=== PATIENT | male | born 1990 | race African-American/Black ===

== ENCOUNTER 2021-04-20 08:27 | Emergency (ER) | payer MEDICAID ==
[~2021-04-20] VITALS: Ht 175.3 cm; Wt 82.0 kg
[2021-04-20] MEDS ORDERED: IBUPROFEN 600MG TABLET PO ONE (08:45)
[2021-04-20] MEDS ORDERED: DOCUSATE SODIUM SUGAR FREE 100MG/10ML UDC NG ONE (08:45)
[2021-04-20] MEDS ORDERED: CARB15DR63 EACH EAR (10:04)
[2021-04-20 10:24] VITALS: BP 134/79
== END 2021-04-20 10:30 | disposition home or self-care (01) ==
LOC: ER 08:27
DX: H61.23 Impacted cerumen, bilateral (principal); J45.909 Unspecified asthma, uncomplicated
CPT/HCPCS: 99282; A4217

== ENCOUNTER 2021-09-05 10:47 | Emergency (ER) | payer MEDICAID ==
[~2021-09-05] VITALS: Ht 172.7 cm; Wt 79.0 kg
[~2021-09-05 10:47] MED LIST: CARB15DR63 EACH EAR; NAPR-1176 MT; TC1U15 TP
[2021-09-05] MEDS ORDERED: ALBUTEROL (0.083%) 2.5MG/3ML NEB HHN STA (12:52)
[2021-09-05] MEDS ORDERED: IPRATROPIUM BROMIDE (0.02%) 0.5MG/2.5ML NEB HHN STA (12:52)
[2021-09-05] MEDS ORDERED: METHYLPREDNISOLONE SOD SUCC 125 MG/2 ML VIAL IV STA (12:52)
[2021-09-05] MEDS ORDERED: NITROGLYCERIN 0.4MG TABLET SL SL PRN (13:00)
[2021-09-05] MEDS ORDERED: ASPIRIN 81MG TABLET PO ONE (13:00)
[2021-09-05 13:25] LABS: CHLORIDE 107 mEq/L (98-107)
[2021-09-05 13:28] LABS: BASOPHILS % 0.7 % (0.0-2.0); EOSINOPHILS % 5.1 % (0.0-5.0); HEMATOCRIT. 43.4 % (42.0-52.0); LYMPHOCYTES % 23.4 % (20.0-50.0); MEAN CORPUSCULAR HEMOGLOBIN 22.5 pg (28.0-32.0); MEAN PLATELET VOLUME 8.5 fl (7.4-10.4); MONOCYTES % 7.9 % (2.0-8.0); NEUTROPHILS % 62.9 % (40.0-76.0); PLATELET 227 x1000/uL (130-400); RED CELL DISTRIBUTION WIDTH 14.7 % (11.6-14.6)
[2021-09-05 13:49] LABS: D-DIMER < 0.19 mg/L FEU (<0.50); PARTIAL THROMBOPLASTIN TIME 26.8 sec (23.4-31.0)
[2021-09-05 14:15] LABS: PLATELET ESTIMATE NORMAL
[2021-09-05] MEDS ORDERED: ALBU6.7H9 INH (14:42)
[2021-09-05] MEDS ORDERED: P20 MT (14:43)
[2021-09-05 19:35] VITALS: BP 134/87
== END 2021-09-05 20:09 | disposition home or self-care (01) ==
LOC: ER 10:47
DX: R07.89 Other chest pain (principal); J45.901 Unspecified asthma with (acute) exacerbation; Z79.899 Other long term (current) drug therapy
CPT/HCPCS: 36415; 71045; 80053; 83880; 84484; 85025; 85379; 85610; 85730; 93005; 94644; 96374; 99285; J2930; Z7610

== ENCOUNTER 2021-10-22 22:01 | Emergency (ER) | payer MEDICAID ==
[~2021-10-22] VITALS: Ht 170.2 cm; Wt 80.0 kg
[~2021-10-22 22:01] MED LIST changes: +ALBU6.7H9 INH; +P20 MT
[2021-10-22] MEDS ORDERED: IPRATROPIUM BROMIDE (0.02%) 0.5MG/2.5ML NEB HHN STA (22:47)
[2021-10-22] MEDS ORDERED: METHYLPREDNISOLONE SOD SUCC 125 MG/2 ML VIAL IV STA (22:47)
[2021-10-22] MEDS ORDERED: ALBUTEROL (0.083%) 2.5MG/3ML NEB HHN STA (22:47)
[2021-10-22] MEDS ORDERED: MAGNESIUM 2 G PREMIX 50 ML IV STA (22:47)
[2021-10-22 23:39] LABS: CHLORIDE 110 mEq/L (98-107)
[2021-10-22 23:42] LABS: BASOPHILS % 0.7 % (0.0-2.0); EOSINOPHILS % 9.5 % (0.0-5.0); HEMATOCRIT. 45.8 % (42.0-52.0); HEMOGLOBIN. 14.5 g/dL (14.0-18.0); LYMPHOCYTES % 24.2 % (20.0-50.0); MEAN CORPUSCULAR HEMOGLOBIN 22.3 pg (28.0-32.0); MEAN CORPUSCULAR VOLUME 70.6 fL (80.0-94.0); MEAN PLATELET VOLUME 8.4 fl (7.4-10.4); MONOCYTES % 8.3 % (2.0-8.0); NEUTROPHILS % 57.3 % (40.0-76.0); PLATELET 239 x1000/uL (130-400); RED BLOOD CELL COUNT 6.49 mill/uL (4.7-6.1); RED CELL DISTRIBUTION WIDTH 14.9 % (11.6-14.6)
[2021-10-23] MEDS ORDERED: P20 MT (00:11)
[2021-10-23] MEDS ORDERED: ALBU6.7H9 INH (00:11)
[2021-10-23 02:00] VITALS: BP 11/75
== END 2021-10-23 02:32 | disposition home or self-care (01) ==
LOC: ER 22:01
DX: J45.901 Unspecified asthma with (acute) exacerbation (principal)
CPT/HCPCS: 36415; 71045; 80048; 85025; 93005; 96365; 96366; 96375; 99285; J2930; J3475; Z7610

== ENCOUNTER 2021-11-02 18:05 | Emergency (ER) | payer MEDICAID, OTHER ==
[~2021-11-02] VITALS: Ht 172.7 cm; Wt 82.0 kg
[2021-11-02] MEDS ORDERED: ACETAMINOPHEN 325MG TABLET PO STA (20:33)
[2021-11-02] MEDS ORDERED: IPRATROPIUM BROMIDE (0.02%) 0.5MG/2.5ML NEB HHN STA (20:33)
[2021-11-02] MEDS ORDERED: KETOROLAC 30MG/ML VIAL IV STA (20:33)
[2021-11-02 21:02] LABS: BASOPHILS % 0.5 % (0.0-2.0); EOSINOPHILS % 3.6 % (0.0-5.0); HEMATOCRIT. 42.8 % (42.0-52.0); HEMOGLOBIN. 13.7 g/dL (14.0-18.0); LYMPHOCYTES % 31.7 % (20.0-50.0); MEAN CORPUSCULAR HEMOGLOBIN 22.4 pg (28.0-32.0); MEAN CORPUSCULAR VOLUME 69.9 fL (80.0-94.0); MEAN PLATELET VOLUME 8.5 fl (7.4-10.4); MONOCYTES % 8.5 % (2.0-8.0); NEUTROPHILS % 55.7 % (40.0-76.0); PLATELET 231 x1000/uL (130-400); RED BLOOD CELL COUNT 6.13 mill/uL (4.7-6.1); RED CELL DISTRIBUTION WIDTH 14.6 % (11.6-14.6)
[2021-11-02 21:08] LABS: CHLORIDE 107 mEq/L (98-107)
[2021-11-02] MEDS: ALBUTEROL (0.083%) 2.5MG/3ML NEB HHN SCH ×2 (21:13→21:38)
[2021-11-02 21:26] LABS: MONOTEST NEGATIVE (NEGATIVE)
[2021-11-02 21:29] LABS: PLATELET ESTIMATE NORMAL
[2021-11-02 21:56] LABS: CLARITY URINE CLEAR (CLEAR); COLOR URINE YELLOW (YELLOW); KETONES URINE TRACE (NEGATIVE); LEUKOCYTE ESTERASE URINE NEGATIVE (NEGATIVE); NITRITE URINE NEGATIVE (NEGATIVE); OCCULT BLOOD URINE NEGATIVE (NEGATIVE); PROTEIN URINE NEGATIVE (NEGATIVE); SPECIFIC GRAVITY URINE 1.025 (1.005-1.030)
[2021-11-03 01:04] VITALS: BP 142/75
== END 2021-11-03 01:06 | disposition home or self-care (01) ==
LOC: ER 18:05
DX: J45.901 Unspecified asthma with (acute) exacerbation (principal); R53.83 Other fatigue
CPT/HCPCS: 36415; 71045; 80053; 81003; 85025; 86308; 87804; 94640; 96374; 99285; J1885; Z7610; 94644

== ENCOUNTER 2021-11-13 21:12 | Emergency (ER) | payer OTHER ==
[~2021-11-13] VITALS: Ht 172.7 cm; Wt 80.0 kg
[2021-11-13 21:33] VITALS: BP 131/75
[2021-11-13] MEDS ORDERED: IBUP-2030 MT (22:49)
== END 2021-11-13 23:01 | disposition home or self-care (01) ==
LOC: ER 21:12
DX: S93.491A Sprain of other ligament of right ankle, initial encounter (principal); Y93.01 Activity, walking, marching and hiking; Y93.89 Activity, other specified; Y92.488 Other paved roadways as the place of occurrence of the external cause
CPT/HCPCS: 73610; 99283

== ENCOUNTER 2021-12-08 15:44 | Emergency (ER) | payer OTHER ==
[~2021-12-08] VITALS: Ht 172.7 cm; Wt 79.0 kg
[~2021-12-08 15:44] MED LIST changes: +IBUP-2030 MT
[2021-12-08] MEDS ORDERED: IPRATROPIUM BROMIDE (0.02%) 0.5MG/2.5ML NEB HHN STA (16:51)
[2021-12-08] MEDS ORDERED: ALBUTEROL (0.083%) 2.5MG/3ML NEB HHN STA (16:51)
[2021-12-08] MEDS ORDERED: PREDNISONE 20MG TABLET PO STA (16:51)
[2021-12-08] MEDS ORDERED: ALBU6.7H15 INH (17:57)
[2021-12-08] MEDS ORDERED: TC1U15 TP (17:57)
[2021-12-08] MEDS ORDERED: P50 MT (17:57)
[2021-12-08 18:13] VITALS: BP 135/70
== END 2021-12-08 18:15 | disposition home or self-care (01) ==
LOC: ER 15:44
DX: J20.9 Acute bronchitis, unspecified (principal); R06.2 Wheezing; I49.9 Cardiac arrhythmia, unspecified; L30.9 Dermatitis, unspecified; Z76.0 Encounter for issue of repeat prescription; Z20.822 Contact with and (suspected) exposure to COVID-19
CPT/HCPCS: 87426; 93005; 94640; 99284; J7512; Z7610

== ENCOUNTER 2021-12-22 03:02 | Emergency (ER) | payer MEDICAID, OTHER ==
[~2021-12-22] VITALS: Ht 172.7 cm; Wt 85.0 kg
[~2021-12-22 03:02] MED LIST changes: +ALBU6.7H15 INH; +P50 MT
[2021-12-22] MEDS ORDERED: PREDNISONE 20MG TABLET PO STA (03:42)
[2021-12-22] MEDS ORDERED: ALBUTEROL (0.083%) 2.5MG/3ML NEB HHN STA (03:42)
[2021-12-22] MEDS ORDERED: IPRATROPIUM BROMIDE (0.02%) 0.5MG/2.5ML NEB HHN STA (03:42)
[2021-12-22] MEDS ORDERED: P20 MT (04:46)
[2021-12-22] MEDS ORDERED: ALBU2.5V13 NEB (04:46)
[2021-12-22] MEDS ORDERED: NEBU-270 MC (04:46)
[2021-12-22 04:48] VITALS: BP 122/71
== END 2021-12-22 04:55 | disposition home or self-care (01) ==
LOC: ER 03:31
DX: J45.901 Unspecified asthma with (acute) exacerbation (principal)
CPT/HCPCS: 94640; 99283; J7512; Z7610

== ENCOUNTER 2021-12-25 11:00 | Emergency (ER) | payer MEDICAID ==
[~2021-12-25] VITALS: Ht 172.7 cm; Wt 80.0 kg
[~2021-12-25 11:00] MED LIST changes: +ALBU2.5V13 NEB; +NEBU-270 MC
[2021-12-25] MEDS ORDERED: METHYLPREDNISOLONE SOD SUCC 125 MG/2 ML VIAL IV STA (11:23)
[2021-12-25] MEDS ORDERED: IPRATROPIUM/ALBUTEROL 0.5-3(2.5)MG/3ML NEB HHN ONE (11:30)
[2021-12-25] MEDS ORDERED: PREDNISONE 20MG TABLET PO ONE (11:30)
[2021-12-25] MEDS ORDERED: ALBU05 NEB (13:42)
[2021-12-25] MEDS ORDERED: ALBU6.7H9 INH (13:42)
[2021-12-25] MEDS ORDERED: P50 MT (13:42)
[2021-12-25 13:56] VITALS: BP 132/76
== END 2021-12-25 13:56 | disposition home or self-care (01) ==
LOC: ER 11:00
DX: J45.901 Unspecified asthma with (acute) exacerbation (principal)
CPT/HCPCS: 71045; 93005; 94640; 99291; J7512; Z7610

== ENCOUNTER 2022-01-01 18:45 | Emergency (ER) | payer MEDICAID, OTHER ==
[~2022-01-01] VITALS: Ht 172.7 cm; Wt 79.0 kg
[~2022-01-01 18:45] MED LIST changes: +ALBU05 NEB
[2022-01-01] MEDS ORDERED: IPRATROPIUM BROMIDE (0.02%) 0.5MG/2.5ML NEB HHN STA (19:50)
[2022-01-01] MEDS: ALBUTEROL (0.083%) 2.5MG/3ML NEB HHN SCH ×3 (20:00→21:00)
[2022-01-01] MEDS ORDERED: IPRATROPIUM/ALBUTEROL 0.5-3(2.5)MG/3ML NEB ONE (20:29)
[2022-01-01] MEDS ORDERED: TOPUD PO (21:40)
[2022-01-01] MEDS ORDERED: IBUP-2028 MT (21:40)
[2022-01-01] MEDS ORDERED: ALBU6.7H9 INH (21:41)
[2022-01-01] MEDS ORDERED: ATROV INH (21:41)
[2022-01-01 22:21] VITALS: BP 115/69
== END 2022-01-01 22:24 | disposition home or self-care (01) ==
LOC: ER 18:45
DX: J45.901 Unspecified asthma with (acute) exacerbation (principal); J32.8 Other chronic sinusitis
CPT/HCPCS: 94640; 99283; Z7610

== ENCOUNTER 2022-01-03 02:46 | Emergency (ER) | payer OTHER ==
[~2022-01-03] VITALS: Ht 175.3 cm; Wt 80.0 kg
[~2022-01-03 02:46] MED LIST changes: +ATROV INH; +IBUP-2028 MT; +TOPUD PO
[2022-01-03 02:51] VITALS: BP 125/64
[2022-01-03] MEDS ORDERED: PREDNISONE 20MG TABLET PO ONE (03:15)
[2022-01-03] MEDS ORDERED: IPRATROPIUM/ALBUTEROL 0.5-3(2.5)MG/3ML NEB HHN ONE (03:15)
[2022-01-03 03:20] LABS: BASOPHILS % 0.7 % (0.0-2.0); EOSINOPHILS % 10.2 % (0.0-5.0); HEMATOCRIT. 40.9 % (42.0-52.0); LYMPHOCYTES % 33.1 % (20.0-50.0); MEAN CORPUSCULAR HEMOGLOBIN 22.3 pg (28.0-32.0); MEAN CORPUSCULAR VOLUME 70.1 fL (80.0-94.0); MEAN PLATELET VOLUME 8.6 fl (7.4-10.4); MONOCYTES % 8.4 % (2.0-8.0); NEUTROPHILS % 47.6 % (40.0-76.0); PLATELET 213 x1000/uL (130-400); RED BLOOD CELL COUNT 5.84 mill/uL (4.7-6.1); RED CELL DISTRIBUTION WIDTH 14.7 % (11.6-14.6)
[2022-01-03 03:26] LABS: CHLORIDE 110 mEq/L (98-107)
[2022-01-03] MEDS ORDERED: AMOXICILLIN/POTASSIUM CLAVULANATE 875/125MG TAB PO ONE (05:00)
[2022-01-03] MEDS ORDERED: AMOX-424 MT (05:22)
[2022-01-03] MEDS ORDERED: P20 MT (05:22)
[2022-01-03] MEDS ORDERED: ALBU6.7H9 INH (05:22)
== END 2022-01-03 05:47 | disposition home or self-care (01) ==
LOC: ER 02:46
DX: J45.901 Unspecified asthma with (acute) exacerbation (principal); R94.31 Abnormal electrocardiogram [ECG] [EKG]; J32.9 Chronic sinusitis, unspecified
CPT/HCPCS: 36415; 71045; 80053; 84484; 85025; 93005; 99285; J7512

== ENCOUNTER 2022-01-31 19:06 | Emergency (ER) | payer OTHER ==
[~2022-01-31] VITALS: Ht 172.7 cm; Wt 82.0 kg
[~2022-01-31 19:06] MED LIST changes: +AMOX-424 MT
[2022-01-31] MEDS ORDERED: TC1U15 TP (23:16)
[2022-01-31] MEDS ORDERED: AMOX-424 MT (23:16)
[2022-01-31 23:45] VITALS: BP 118/74
== END 2022-01-31 23:47 | disposition home or self-care (01) ==
LOC: ER 19:06
DX: J01.90 Acute sinusitis, unspecified (principal); L30.9 Dermatitis, unspecified; J45.909 Unspecified asthma, uncomplicated
CPT/HCPCS: 99282

== ENCOUNTER 2022-02-03 17:37 | Emergency (ER) | payer OTHER ==
[~2022-02-03] VITALS: Ht 172.7 cm; Wt 80.0 kg
[2022-02-03] MEDS ORDERED: ALBUTEROL (0.083%) 2.5MG/3ML NEB HHN STA (18:02)
[2022-02-03] MEDS ORDERED: PSEU-207 MT (19:44)
[2022-02-03] MEDS ORDERED: ALBU6.7H15 INH (19:44)
[2022-02-03 20:39] VITALS: BP 113/63
== END 2022-02-03 20:41 | disposition home or self-care (01) ==
LOC: ER 17:37
DX: J45.901 Unspecified asthma with (acute) exacerbation (principal); R09.81 Nasal congestion; L30.9 Dermatitis, unspecified; Z76.0 Encounter for issue of repeat prescription
CPT/HCPCS: 94640; 99283; Z7610

== ENCOUNTER 2022-03-31 03:04 | Emergency (ER) | payer OTHER ==
[~2022-03-31] VITALS: Ht 172.7 cm; Wt 83.8 kg
[~2022-03-31 03:04] MED LIST changes: +PSEU-207 MT
[2022-03-31 03:10] VITALS: BP 119/78
[2022-03-31] MEDS ORDERED: IPRATROPIUM BROMIDE (0.02%) 0.5MG/2.5ML NEB HHN STA (03:40)
[2022-03-31] MEDS: ALBUTEROL (0.083%) 2.5MG/3ML NEB HHN SCH ×3 (04:10→04:57)
[2022-03-31] MEDS ORDERED: ALBU6.7H9 INH (05:01)
[2022-03-31] MEDS ORDERED: TC1U15 TP (05:01)
[2022-03-31] MEDS ORDERED: P50 MT (05:01)
== END 2022-03-31 05:17 | disposition home or self-care (01) ==
LOC: ER 03:04
DX: J45.901 Unspecified asthma with (acute) exacerbation (principal); L30.9 Dermatitis, unspecified; Z76.0 Encounter for issue of repeat prescription
CPT/HCPCS: 94640; 99285; Z7610

== ENCOUNTER 2022-05-05 13:38 | Emergency (ER) | payer OTHER ==
[~2022-05-05] VITALS: Ht 172.7 cm; Wt 82.0 kg
[2022-05-05 14:06] VITALS: BP 126/74
[2022-05-05] MEDS ORDERED: OFLO5DRO4 EACH EAR (14:11)
== END 2022-05-05 14:29 | disposition home or self-care (01) ==
LOC: ER 14:24
DX: H60.93 Unspecified otitis externa, bilateral (principal); J45.909 Unspecified asthma, uncomplicated; L30.9 Dermatitis, unspecified
CPT/HCPCS: 99283

== ENCOUNTER 2022-05-07 13:10 | Emergency (ER) | payer OTHER ==
[~2022-05-07] VITALS: Ht 167.6 cm; Wt 75.0 kg
[~2022-05-07 13:10] MED LIST changes: +OFLO5DRO4 EACH EAR
[2022-05-07 13:13] VITALS: BP 136/86
[2022-05-07] MEDS ORDERED: OFLO5DRO4 EACH EAR ×3 (14:06→14:07)
== END 2022-05-07 14:37 | disposition home or self-care (01) ==
LOC: ER 13:10
DX: H60.93 Unspecified otitis externa, bilateral (principal); J45.909 Unspecified asthma, uncomplicated
CPT/HCPCS: 99283

== ENCOUNTER 2022-06-21 13:33 | Emergency (ER) | payer OTHER ==
[~2022-06-21] VITALS: Ht 175.3 cm; Wt 82.0 kg
[2022-06-21 13:36] VITALS: BP 120/69
[2022-06-21] MEDS ORDERED: SODIUM CHLORIDE 0.9% 1,000 ML IV ONE (14:30)
[2022-06-21 15:38] LABS: BASOPHILS % 0.9 % (0.0-2.0); EOSINOPHILS % 6.2 % (0.0-5.0); HEMATOCRIT. 40.2 % (42.0-52.0); HEMOGLOBIN. 12.5 g/dL (14.0-18.0); LYMPHOCYTES % 28.8 % (20.0-50.0); MEAN CORPUSCULAR HEMOGLOBIN 22.1 pg (28.0-32.0); MEAN CORPUSCULAR VOLUME 70.9 fL (80.0-94.0); MEAN PLATELET VOLUME 8.7 fl (7.4-10.4); MONOCYTES % 8.9 % (2.0-8.0); NEUTROPHILS % 55.2 % (40.0-76.0); PLATELET 220 x1000/uL (130-400); RED BLOOD CELL COUNT 5.68 mill/uL (4.7-6.1); RED CELL DISTRIBUTION WIDTH 14.6 % (11.6-14.6)
[2022-06-21 15:54] LABS: CHLORIDE 109 mEq/L (98-107)
[2022-06-21 16:04] LABS: ETHANOL BLOOD < 10 mg/dL
[2022-06-21 16:12] LABS: *AMPHETAMINES SCREEN URINE NEGATIVE (NEGATIVE); *BARBITURATES SCREEN URINE NEGATIVE (NEGATIVE); *BENZODIAZEPINES SCREEN URINE NEGATIVE (NEGATIVE); *COCAINE SCREEN URINE NEGATIVE (NEGATIVE); CANNABINOID URINE SCREEN NEGATIVE (NEGATIVE); METHADONE URINE SCREEN NEGATIVE (NEGATIVE); OPIATES URINE SCREEN NEGATIVE (NEGATIVE); PHENCYCLIDINE URINE SCREEN NEGATIVE (NEGATIVE)
== END 2022-06-21 17:59 | disposition home or self-care (01) ==
LOC: ER 13:46
DX: R55 Syncope and collapse (principal); E86.0 Dehydration; Z79.899 Other long term (current) drug therapy
CPT/HCPCS: 36415; 71045; 80053; 80305; 80320; 85025; 93005; 96360; 99285; J7030; G0480

== ENCOUNTER 2022-07-06 06:49 | Emergency (ER) | payer OTHER ==
[~2022-07-06] VITALS: Ht 172.7 cm; Wt 85.4 kg
[2022-07-06] MEDS ORDERED: PREDNISONE 20MG TABLET PO STA (07:59)
[2022-07-06] MEDS ORDERED: ALBUTEROL (0.083%) 2.5MG/3ML NEB HHN STA (07:59)
[2022-07-06] MEDS ORDERED: IPRATROPIUM BROMIDE (0.02%) 0.5MG/2.5ML NEB HHN STA (07:59)
[2022-07-06] MEDS ORDERED: ALBUTEROL (0.083%) 2.5MG/3ML NEB ONE (09:41)
[2022-07-06] MEDS ORDERED: ALBUTEROL (0.5%) 2.5MG/0.5ML NEB HHN ONE (09:42)
[2022-07-06] MEDS ORDERED: ALBU6.7H9 INH (11:24)
[2022-07-06] MEDS ORDERED: P50 PO (11:24)
[2022-07-06 11:46] VITALS: BP 133/78
== END 2022-07-06 11:47 | disposition home or self-care (01) ==
LOC: ER 06:49
DX: J45.901 Unspecified asthma with (acute) exacerbation (principal)
CPT/HCPCS: 71045; 93005; 94640; 99283; J7512; Z7610

== ENCOUNTER 2022-07-25 17:24 | Emergency (ER) | payer OTHER ==
[~2022-07-25] VITALS: Ht 172.7 cm; Wt 79.0 kg
[~2022-07-25 17:24] MED LIST changes: +P50 PO
[2022-07-25] MEDS ORDERED: HYDROCODONE/ACETAMINOPHEN 5/325MG TABLET PO ONE (18:00)
[2022-07-25 18:05] VITALS: BP 142/93
[2022-07-25] MEDS ORDERED: TRAM50TA MT (21:02)
[2022-07-25] MEDS ORDERED: IBUP-2030 MT (21:02)
== END 2022-07-25 19:31 | disposition home or self-care (01) ==
LOC: ER 17:24
DX: S62.001A Unspecified fracture of navicular [scaphoid] bone of right wrist, initial encounter for closed fracture (principal); J45.909 Unspecified asthma, uncomplicated; W22.8XXA Striking against or struck by other objects, initial encounter; Y93.89 Activity, other specified; Y92.89 Other specified places as the place of occurrence of the external cause; Y99.8 Other external cause status
CPT/HCPCS: 73110; 73140; 99284; A4565

== ENCOUNTER 2022-08-11 06:09 | Emergency (ER) | payer OTHER ==
[~2022-08-11] VITALS: Ht 175.3 cm; Wt 86.2 kg
[~2022-08-11 06:09] MED LIST changes: +TRAM50TA MT
[2022-08-11] MEDS ORDERED: CARBAMIDE PEROXIDE 6.5% OTIC SOLN 15ML EACH EAR ONE (08:00)
[2022-08-11] MEDS ORDERED: PREDNISONE 20MG TABLET PO STA (09:36)
[2022-08-11] MEDS ORDERED: IPRATROPIUM BROMIDE (0.02%) 0.5MG/2.5ML NEB HHN STA (09:36)
[2022-08-11] MEDS ORDERED: ALBUTEROL (0.083%) 2.5MG/3ML NEB HHN STA (09:36)
[2022-08-11] MEDS ORDERED: ALBU6.7H9 INH (11:54)
[2022-08-11] MEDS ORDERED: CARB-274 EACH EAR (11:54)
[2022-08-11 12:03] VITALS: BP 118/78
== END 2022-08-11 12:04 | disposition home or self-care (01) ==
LOC: ER 06:09
DX: J45.901 Unspecified asthma with (acute) exacerbation (principal); H61.23 Impacted cerumen, bilateral
CPT/HCPCS: 94640; 99283; J7512; Z7610

== ENCOUNTER 2022-09-27 08:05 | Emergency (ER) | payer OTHER ==
[~2022-09-27] VITALS: Ht 170.2 cm; Wt 78.0 kg
[~2022-09-27 08:05] MED LIST changes: +ALBU6.7H3 INH; -ALBU6.7H9 INH; +CARB-274 EACH EAR
[2022-09-27 08:10] VITALS: BP 139/83
[2022-09-27 10:00] LABS: BASOPHILS % 0.4 % (0.0-2.0); EOSINOPHILS % 6.1 % (0.0-5.0); HEMATOCRIT. 42.4 % (42.0-52.0); HEMOGLOBIN. 13.5 g/dL (14.0-18.0); LYMPHOCYTES % 18.2 % (20.0-50.0); MEAN CORPUSCULAR HEMOGLOBIN 22.7 pg (28.0-32.0); MEAN CORPUSCULAR VOLUME 71.1 fL (80.0-94.0); MEAN PLATELET VOLUME 8.3 fl (7.4-10.4); MONOCYTES % 9.6 % (2.0-8.0); NEUTROPHILS % 65.7 % (40.0-76.0); PLATELET 224 x1000/uL (130-400); RED BLOOD CELL COUNT 5.96 mill/uL (4.7-6.1); RED CELL DISTRIBUTION WIDTH 15.1 % (11.6-14.6)
[2022-09-27 10:06] LABS: CHLORIDE 105 mEq/L (98-107)
[2022-09-27] MEDS ORDERED: HYDR-3735 MT (10:34)
[2022-09-27] MEDS ORDERED: TC1U15 TP (10:50)
== END 2022-09-27 11:32 | disposition home or self-care (01) ==
LOC: ER 08:05
DX: R21 Rash and other nonspecific skin eruption (principal); J45.909 Unspecified asthma, uncomplicated; Z79.899 Other long term (current) drug therapy
CPT/HCPCS: 36415; 80053; 85025; 99283